=== PATIENT | female | born 1995 | race Caucasian/White ===

== ENCOUNTER 2019-06-20 21:14 | Emergency (ER) | payer MEDICAID, OTHER ==
[~2019-06-20] VITALS: Ht 167 cm; Wt 46.0 kg
[2019-06-20] MEDS ORDERED: TRAM50TA2 PO (23:11)
[2019-06-20 23:36] VITALS: BP 139/70
--- NOTE | 2019-06-21 06:45 | Diagnostic Imaging Report ---
Clinical indication: Patient running with her child at home and fell in kitchen. Patient hurt her right ankle. Exam: X-ray of the right ankle, 3 views. Comparison: None. Findings: There is no acute fracture or dislocation. There is no significant bone or joint abnormality. Ankle mortise and syndesmotic joints unremarkable as visualized. Impression: Unremarkable x-ray of the right ankle. Dictated by: Dictated on workstation # [id number]
--- NOTE | 2019-06-21 09:14 | ED Lower Extremity ---
General Chief Complaint: Lower Extremity Stated Complaint: RT ANKLE INJ Nursing Triage Note: PT RUNNING WITH HER CHILD AT HOME AND FELL IN KITCHEN. PT STATES THAT SHE HURT HER RIGHT ANKLE Nursing Sepsis Screen: No Definite Risk Source: patient Exam Limitations: no limitations History of Present Illness Date Seen by Provider: Jun 21, 2019 Time Seen by Provider: 22:00 Initial Comments Patient is a 23-year-old who presents with isolated right ankle pain/injury. States she twisted right ankle while chasing after her young child. Reports pain over lateral malleoli. No deformity noted. No swelling soft tissue tenderness noted. Pain with weightbearing. Ibuprofen taken prior to ED arrival. Onset: just prior to arrival Pain/Injury Location: right ankle Method of Injury: twisted Allergies and Home Medications Allergies Coded Allergies: Penicillins (Verified Allergy, Unknown, 06/20/19) amoxicillin (Verified Allergy, Unknown, 06/20/19) Home Medications Tramadol HCl 50 Mg Tablet, 50 MG PO Q6H PRN for PAIN Prescribed by: AMI BECERRA on 06/20/19 9113 Patient Home Medication List Home Medication List Reviewed: Yes Review of Systems Constitutional: see HPI Respiratory: see HPI Cardiovascular: see HPI Gastrointestinal: no symptoms reported Genitourinary: see HPI Musculoskeletal: see HPI Past Deovgqd-Jenjsi-Zujutx Hx Patient Social History Alcohol Use: Denies Use Recreational Drug Use: No Smoking Status: Never a Smoker 2nd Hand Smoke Exposure: No Recent Foreign Travel: No Contact w/Someone Who Travel: No Recent Infectious Disease Expo: No Recent Hopitalizations: No Physical Abuse: No Sexual Abuse: No Mistreated: No Past Medical History Surgeries: Yes Section Respiratory: No Cardiac: No Neurological: No Genitourinary: No Gastrointestinal: No Musculoskeletal: No Endocrine: No HEENT: No Cancer: No Psychosocial: No Integumentary: No Blood Disorders: No Physical Exam Vital Signs Vital Signs - First Documented 06/20/19 21:50 Temp 37.0 Pulse 85 Resp 16 B/P (MAP) 148/89 (108) Pulse Ox 99 O2 Delivery Room Air Capillary Refill : Less Than 3 Seconds Height, Weight, BMI Height: '" Weight: lbs. oz. kg; 16.00 BMI Method: General Appearance: no apparent distress HEENT: PERRL/EOMI Ankles: right ankle swelling Neurologic/Tendon: normal sensation, normal motor functions Neurologic/Psychiatric: no motor/sensory deficits, oriented x 3 Progress/Results/Core Measures Results/Orders My Orders Orders - AMI BECERRA DO Ankle 3 View Right (06/20/19 22:19) Crutches (06/20/19 23:07) Nursing Communication (Order) (06/20/19 23:07) Tramadol Tablet (Ultram Tablet) (06/20/19 23:15) Medications Given in ED Current Medications Medications Dose Ordered Sig/Nina Route Start Time Stop Time Status Last Admin Dose Admin Tramadol HCl 50 mg ONCE ONCE PO 06/20/19 23:15 06/20/19 23:16 DC 06/20/19 23:19 50 MG Vital Signs/I&O 06/20/19 06/20/19 21:50 23:36 Temp 37.0 Pulse 85 88 Resp 16 16 B/P (MAP) 148/89 (108) 139/70 Pulse Ox 99 97 O2 Delivery Room Air Room Air Blood Pressure Mean: 108 Departure Communication (Admissions) RICE Impression Primary Impression: Right ankle sprain Disposition: 01 HOME, SELF-CARE Condition: Improved Departure-Patient Inst. Referrals: CLEMENT WILCOX APRN Primary Care Physician Patient Instructions: Ankle Sprain (DC) Add. Discharge Instructions: Please wear stirrup splint, avoid weightbearing if painful and use crutches. you may take and milligrams of ibuprofen 3 times daily and tramadol as needed for additional relief. Follow-up with local PCP early next week if symptoms persist. All discharge instructions reviewed with patient and/or family. Voiced understanding. Scripts Tramadol HCl (Tramadol HCl) 50 Mg Tablet 50 MG PO Q6H PRN for PAIN for 3 Days, #10 TAB 0 Refills Prov: AMI BECERRA DO 06/20/19 AMI BECERRA DO Jun 21, 2019 09:14
== END 2019-06-20 23:38 | disposition home or self-care (01) ==
LOC: ER FS 21:16
DX: S93.401A Sprain of unspecified ligament of right ankle, initial encounter (principal); Z88.0 Allergy status to penicillin; X50.1XXA Overexertion from prolonged static or awkward postures, initial encounter; Y92.009 Unspecified place in unspecified non-institutional (private) residence as the place of occurrence of the external cause; Y93.02 Activity, running
CPT/HCPCS: 73610

== ENCOUNTER 2020-08-21 14:18 | Emergency (ER) | payer MEDICAID ==
[~2020-08-21 14:18] MED LIST: TRM50T PO
--- NOTE | 2020-08-21 14:54 | ED GI ---
General Chief Complaint: Abdominal/GI Problems Stated Complaint: STOMACH PAIN, DIZZY, SOA Nursing Triage Note: has had abdominal pain, nausea, and diarrhea after eating x the last 2 weeks. Pain starts 30 min to 1 hour after eating. States this causes her to have anxiety. Pain is rated at 6/10. Has not taken any pain medications. The pain is located in lower quadrants and described as sharp. LMP was 6 weeks ago. Took test this morning and states it was negative. Sepsis Screen: No Definite Risk Source of Information: Patient Exam Limitations: No Limitations History of Present Illness Date Seen by Provider: Aug 21, 2020 Time Seen by Provider: 14:40 Initial Comments 25-year-old female presents with intermittent abdominal pain, nausea and abdominal cramping for the past 2 weeks. Pain begins shortly after eating. History of similar symptoms in the past, although not as frequent. Occasional constipation and occasional diarrhea. Allergies and Home Medications Allergies Coded Allergies: Penicillins (Verified Allergy, Unknown, 06/20/19) amoxicillin (Verified Allergy, Unknown, 06/20/19) Home Medications Tramadol HCl 50 Mg Tablet, 50 MG PO Q6H PRN for PAIN Prescribed by: AMI BECERRA on 06/20/19 3127 Patient Home Medication List Home Medication List Reviewed: Yes Review of Systems Review of Systems Constitutional: see HPI; No fever, No malaise, No weakness EENTM: No Symptoms Reported Respiratory: No Symptoms Reported; Denies Cough, Denies Shortness of Air Cardiovascular: Denies Chest Pain, Denies Edema Gastrointestinal: See HPI, Abdominal Pain, Diarrhea, Nausea, Poor Appetite; Denies Vomiting (although vomited on arrival to ER) Genitourinary: Denies Frequency, Denies Flank Pain, Denies Hematuria Musculoskeletal: No back pain, No joint pain Skin: No change in color, No rash Past Uncplfj-Dhwhag-Avfrzs Hx Past Med/Social Hx: Reviewed Nursing Past Med/Soc Hx Patient Social History Alcohol Use: Denies Use Recreational Drug Use: Yes Drug of Choice: marijuana- used today Smoking Status: Never a Smoker 2nd Hand Smoke Exposure: No Recent Foreign Travel: No Contact w/Someone Who Travel: No Recent Infectious Disease Expo: No Recent Hopitalizations: No Past Medical History Surgeries: Yes Section Respiratory: No Cardiac: No Neurological: No Genitourinary: No Gastrointestinal: No Musculoskeletal: No Endocrine: No HEENT: No Cancer: No Psychosocial: Yes Anxiety Integumentary: No Blood Disorders: No Physical Exam Vital Signs Vital Signs - First Documented 08/21/20 14:29 Temp 36.5 Pulse 112 Resp 16 B/P (MAP) 165/87 (113) Pulse Ox 100 Capillary Refill : Less Than 3 Seconds Height/Weight/BMI Height: '" Weight: lbs. oz. kg; 16.00 BMI Method: General Appearance: WD/WN, no apparent distress HEENT: PERRL/EOMI, normal ENT inspection Respiratory: chest non-tender, lungs clear, normal breath sounds, no respiratory distress, no accessory muscle use Cardiovascular: regular rate, rhythm, no gallop, no JVD Gastrointestinal: non tender, soft, no organomegaly, no pulsatile mass; No distended, No guarding, No rebound; tenderness (minimal- lower abdomen without localization) Extremities: normal range of motion, non-tender Back: normal inspection, no CVA tenderness, no vertebral tenderness Neurologic/Psychiatric: alert, normal mood/affect Skin: normal color, warm/dry Progress/Results/Core Measures Results/Orders Lab Results Laboratory Tests Test 08/21/20 14:39 08/21/20 14:56 Range/Units Urine Color YELLOW Urine Clarity CLEAR Urine pH 7.5 5-9 Urine Specific Melissa 1.025 H 1.016-1.022 Urine Protein NEGATIVE NEGATIVE Urine Glucose (UA) NEGATIVE NEGATIVE Urine Ketones NEGATIVE NEGATIVE Urine Nitrite NEGATIVE NEGATIVE Urine Bilirubin NEGATIVE NEGATIVE Urine Urobilinogen 0.2 < = 1.0 MG/DL Urine Leukocyte Esterase NEGATIVE NEGATIVE Urine RBC (Auto) NEGATIVE NEGATIVE Urine RBC 0-2 /HPF Urine WBC 0-2 /HPF Urine Squamous Epithelial Cells 5-10 /HPF Urine Crystals PRESENT H /LPF Urine Amorphous Sediment MOD CHARISMA PHOSPHATE H /LPF Urine Bacteria NEGATIVE /HPF Urine Casts NONE /LPF Urine Mucus LARGE H /LPF Urine Culture Indicated NO Urine Test NEGATIVE NEGATIVE White Blood Count 6.6 4.3-11.0 10^3/uL Red Blood Count 4.26 L 4.35-5.85 10^6/uL Hemoglobin 13.8 11.5-16.0 G/DL Hematocrit 39 35-52 % Mean Corpuscular Volume 91 80-99 FL Mean Corpuscular Hemoglobin 32 25-34 PG Mean Corpuscular Hemoglobin Concent 36 32-36 G/DL Red Cell Distribution Width 11.9 10.0-14.5 % Platelet Count 229 130-400 10^3/uL Mean Platelet Volume 9.1 7.4-10.4 FL Immature Granulocyte % (Auto) 0 % Neutrophils (%) (Auto) 64 42-75 % Lymphocytes (%) (Auto) 29 12-44 % Monocytes (%) (Auto) 5 0-12 % Eosinophils (%) (Auto) 2 0-10 % Basophils (%) (Auto) 0 0-10 % Neutrophils # (Auto) 4.2 1.8-7.8 X 10^3 Lymphocytes # (Auto) 1.9 1.0-4.0 X 10^3 Monocytes # (Auto) 0.4 0.0-1.0 X 10^3 Eosinophils # (Auto) 0.1 0.0-0.3 10^3/uL Basophils # (Auto) 0.0 0.0-0.1 10^3/uL Immature Granulocyte # (Auto) 0.0 0.0-0.1 10^3/uL Sodium Level 139 135-145 MMOL/L Potassium Level 3.7 3.6-5.0 MMOL/L Chloride Level 104 98-107 MMOL/L Carbon Dioxide Level 22 21-32 MMOL/L Anion Gap 13 5-14 MMOL/L Blood Urea Nitrogen 9 7-18 MG/DL Creatinine 0.52 L 0.60-1.30 MG/DL Estimat Glomerular Filtration Rate > 60 BUN/Creatinine Ratio 17 Glucose Level 119 H 70-105 MG/DL Calcium Level 9.8 8.5-10.1 MG/DL Corrected Calcium 8.5-10.1 MG/DL Total Bilirubin 0.9 0.1-1.0 MG/DL Aspartate Amino Transf (AST/SGOT) 15 5-34 U/L Alanine Aminotransferase (ALT/SGPT) 13 0-55 U/L Alkaline Phosphatase 48 40-136 U/L Total Protein 7.4 6.4-8.2 GM/DL Albumin 5.0 H 3.2-4.5 GM/DL My Orders Orders - WILLIAN CAMACHO DO Cbc With Automated Diff (08/21/20 14:48) Comprehensive Metabolic Panel (08/21/20 14:48) Urinalysis (08/21/20 14:48) Abdomen Flat & Upright/Decub (08/21/20 14:48) Hcg,Qualitative Urine (08/21/20 14:48) Ns Iv 1000 Ml (Sodium Chloride 0.9%) (08/21/20 15:00) Ondansetron Injection (Zofran Injectio (08/21/20 15:00) Medications Given in ED Current Medications Medications Dose Ordered Sig/Nina Route Start Time Stop Time Status Last Admin Dose Admin Ondansetron HCl 4 mg ONCE ONCE IVP 08/21/20 15:00 08/21/20 15:01 DC 08/21/20 15:04 4 MG Vital Signs/I&O 08/21/20 14:29 Temp 36.5 Pulse 112 Resp 16 B/P (MAP) 165/87 (113) Pulse Ox 100 Blood Pressure Mean: 113 Diagnostic Imaging Diagonstic Imaging: Xray Comments COMPARISON: None available. FINDINGS: No dilated bowel. No free fluid or air. Intrauterine device is present. Lung bases are clear. IMPRESSION: Normal bowel gas pattern. Dictated on workstation # [id number] Dict: 08/21/20 1508 Trans: 08/21/20 1511 PJE [id number] Interpreted by: MCKENZIE SWANSON MD Electronically signed by: Departure Impression Primary Impression: Abdominal pain Qualified Codes: R10.84 - Generalized abdominal pain Disposition: HOME, SELF-CARE Condition: Improved Departure-Patient Inst. Decision time for Depature: 15:28 Referrals: [facility] [place] (PCP/Family) Primary Care Physician Patient Instructions: IBS Diet, Severe Abdominal Pain, Adult (DC) Add. Discharge Instructions: Follow up in 1 to 2 weeks with a provider at the [facility] of [facility] [place] for further evaluation All discharge instructions reviewed with patient and/or family. Voiced understanding. Scripts Ondansetron (Ondansetron Odt) 4 Mg Tab.rapdis 4 MG PO TID for Nausea, #15 TAB Prov: WILLIAN CAMACHO DO 08/21/20 WILLIAN CAMACHO DO Aug 21, 2020 14:54
[2020-08-21] MEDS ORDERED: NS IV 1000 ML 1,000 ML IV SCH (15:00)
[2020-08-21] MEDS ORDERED: ONDANSETRON 4 MG/2 ML (SDV) Z0FRAN IVP ONE (15:00)
[2020-08-21 15:09] LABS: BILIRUBIN,URINE NEGATIVE (NEGATIVE); CLARITY,URINE CLEAR; COLOR,URINE YELLOW; GLUCOSE, URINE (UA) NEGATIVE (NEGATIVE); KETONES,URINE NEGATIVE (NEGATIVE); LEUKOCYTE ESTERASE ,URINE NEGATIVE (NEGATIVE); NITRITE,URINE NEGATIVE (NEGATIVE); PH,URINE 7.5 (5-9); PROTEIN,URINE NEGATIVE (NEGATIVE)
[2020-08-21 15:10] LABS: AMORPHOUS SEDIMENT,UR MOD AMOR PHOSPHATE /LPF; BACTERIA,URINE NEGATIVE /HPF; RBC,URINE 0-2 /HPF; WBC,URINE 0-2 /HPF
--- NOTE | 2020-08-21 15:11 | Diagnostic Imaging Report ---
EXAMINATION: Abdomen 2 view. HISTORY: Abdominal pain. COMPARISON: None available. FINDINGS: No dilated bowel. No free fluid or air. Intrauterine device is present. Lung bases are clear. IMPRESSION: Normal bowel gas pattern. Dictated by: Dictated on workstation # [id number]
[2020-08-21 15:12] LABS: HEMOGLOBIN 13.8 G/DL (11.5-16.0); MEAN CORPUSCULAR HEMOGLOBIN 32 PG (25-34); WHITE BLOOD COUNT 6.6 10^3/uL (4.3-11.0)
[2020-08-21 15:13] LABS: BASOPHILS % (AUTO) 0 % (0-10); EOSINOPHILS # (AUTO) 0.1 10^3/uL (0.0-0.3); EOSINOPHILS % (AUTO) 2 % (0-10); HEMATOCRIT 39 % (35-52); LYMPHOCYTES # (AUTO) 1.9 X 10^3 (1.0-4.0); LYMPHOCYTES % (AUTO) 29 % (12-44); MEAN CORPUSCULAR HGB CONC 36 G/DL (32-36); MEAN CORPUSCULAR VOLUME 91 FL (80-99); MEAN PLATELET VOLUME 9.1 FL (7.4-10.4); MONOCYTES # (AUTO) 0.4 X 10^3 (0.0-1.0); MONOCYTES % (AUTO) 5 % (0-12); NEUTROPHILS # (AUTO) 4.2 X 10^3 (1.8-7.8); NEUTROPHILS % (AUTO) 64 % (42-75); PLATELET COUNT 229 10^3/uL (130-400)
[2020-08-21 15:20] LABS: POTASSIUM 3.7 MMOL/L (3.6-5.0); SODIUM 139 MMOL/L (135-145)
[2020-08-21 15:21] LABS: ALANINE AMINOTRANSFERASE 13 U/L (0-55); ALKALINE PHOSPHATASE 48 U/L (40-136); BILIRUBIN,TOTAL 0.9 MG/DL (0.1-1.0); BUN/CREATININE RATIO 17; CALCIUM 9.8 MG/DL (8.5-10.1); CARBON DIOXIDE 22 MMOL/L (21-32); CHLORIDE 104 MMOL/L (98-107); CREATININE SERUM 0.52 MG/DL (0.60-1.30); GFR ESTIMATED > 60; GLUCOSE 119 MG/DL (70-105); TOTAL PROTEIN 7.4 GM/DL (6.4-8.2)
[2020-08-21] MEDS ORDERED: ONDA4TAB11 PO (15:27)
[2020-08-21 15:37] VITALS: BP 124/91
== END 2020-08-21 15:39 | disposition home or self-care (01) ==
LOC: EDUNIT# 14:18 → ER FS 14:20
DX: R10.30 Lower abdominal pain, unspecified (principal); Z88.0 Allergy status to penicillin; Z88.1 Allergy status to other antibiotic agents
CPT/HCPCS: 36415; 74019; 80053; 81000; 84703; 85025

== ENCOUNTER → 2020-09-09 | Outpatient (CLI) | payer MEDICAID ==
[~2020-09-09] MED LIST changes: +CATHETER FLUSH 10 ML SYR IV PRN; +ONDA4TAB11 PO
--- NOTE | 2020-09-09 14:18 | Diagnostic Imaging Report ---
INDICATION: Pain and nausea COMPARISON: No relevant comparison. TECHNIQUE: The patient received 5 mCi intravenous technetium 99m Choletec. Following confirmation of activity within the gallbladder, bile ducts and proximal bowel, gallbladder stimulation was then performed with the patient ingesting 8 ounces of Ensure. Gallbladder ejection fraction then quantified. There is rapid accumulation of radiopharmacy within the gallbladder within 15 minutes time. Activity was spilling into the proximal bowel within 20 minutes time. With gallbladder stimulation, there was diminished contractility. The ejection fraction was 37% and the stimulation did reproduce the patient's presenting complaint of pain. IMPRESSION: 1. 37% gallbladder ejection fracture. Gallbladder stimulation via Ensure ingestion reproduced the presenting complaint of pain. 2. No evidence for cystic or common duct obstruction however. Dictated by: Dictated on workstation # [id number]
== END ==
LOC: CARD 09:03
PROVIDERS: ATTEND Family Medicine
DX: R11.0 Nausea (principal); R10.84 Generalized abdominal pain
CPT/HCPCS: 78227; A9537

== ENCOUNTER → 2020-10-22 | Outpatient (CLI) | payer MEDICAID ==
[~2020-10-22] MED LIST changes: -CATHETER FLUSH 10 ML SYR IV PRN
--- NOTE | 2020-10-22 11:13 | Diagnostic Imaging Report ---
EXAM: Supine abdomen at 10:50 AM INDICATION: Left lower quadrant pain 2 supine views were obtained. There is gas in both the large and small bowel in a nonspecific fashion. There is also a considerable amount of fecal material throughout the colon. These findings are quite similar to the prior exam of 08/21/2020. There is no evidence of a bowel obstruction. There is no mass or organomegaly appreciated. The IUD overlying the pelvis just to the right of midline seen previously is again evident. The osseous structures are intact. IMPRESSION: 1. The bowel gas pattern is nonspecific. There is no acute abnormality identified. 2. As on the prior exam, there is a considerable amount of fecal material throughout the colon. Dictated by: Dictated on workstation # [id number]
== END ==
LOC: RAD FS 10:42
PROVIDERS: ATTEND Family Medicine
DX: K58.9 Irritable bowel syndrome, unspecified (principal)
CPT/HCPCS: 74018

== ENCOUNTER 2020-12-20 15:49 | Emergency (ER) | payer MEDICAID ==
--- NOTE | 2020-12-20 16:11 | ED Abdominal Pain ---
General Chief Complaint: Abdominal/GI Problems Stated Complaint: ABD PAIN Source of Information: Patient Exam Limitations: No Limitations History of Present Illness Date Seen by Provider: Dec 20, 2020 Time Seen by Provider: 15:52 Initial Comments Patient presents ER by private conveyance with her significant other and chief complaint of having some progressively worsening abdominal pain in her left upper quadrant and left lower quadrant that was at worst a 6 out of 10 but now is coming down to about a 2 out of 10. She has nausea that is worsened by palpation of her abdomen. She has not vomited. Last week her fly winder set her up to do endoscopy upper and lower. The upper endoscopy was normal and the lower showed several patches of inflammation so biopsies were taken. She has been having significant weight loss over the past 6 months. She is not having any dysuria or fever. She does not know the results of her biopsies yet. She has not taken anything for pain or nausea. She does have significant anxiety related to her health and has clonazepam for panic attacks. She did not take 1 but she was feeling a panic attack coming on related to her health concerns and having some chest pain and radiating to her left arm. She is not having any fevers chills, shortness of breath. She has not had a significant bowel movement since her colonoscopy and this morning had just a few little bits of stool. This morning she was passing gas but not this afternoon. She has had 2 C-sections. Patient has intrauterine device. She states she weighed 117 several months ago when the symptoms started. 108# today. Allergies and Home Medications Allergies Coded Allergies: Penicillins (Verified Allergy, Unknown, 06/20/19) amoxicillin (Verified Allergy, Unknown, 06/20/19) sertraline (Unverified Allergy, Unknown, Throat swells, 12/20/20) Home Medications Lubiprostone 8 Mcg Capsule, 8 MCG PO BID PRN for CONSTIPATION-2ND LINE Prescribed by: RABIA GERARDO on 12/20/20 172 Na Phos,M-B/Na Phos,Di-Ba 133 Ml Enema, 133 ML RC BID PRN for CONSTIPATION-1ST LINE Prescribed by: RABIA GERARDO on 12/20/20 1726 Ondansetron 4 Mg Tab.rapdis, 4 MG PO TID Prescribed by: WILLIAN CAMACHO on 08/21/20 1527 Ondansetron 4 Mg Tab.rapdis, 4 MG PO Q6H PRN for NAUSEA/VOMITING Prescribed by: RABIA GERARDO on 12/20/20 1726 Tramadol HCl 50 Mg Tablet, 50 MG PO Q6H PRN for PAIN Prescribed by: AMI BECERRA on 06/20/19 2311 Patient Home Medication List Home Medication List Reviewed: Yes Review of Systems Review of Systems Constitutional: No chills, No diaphoresis EENTM: No Blurred Vision, No Double Vision Respiratory: Denies Cough, Denies Orthopnea Cardiovascular: See HPI, Chest Pain; Denies Edema, Denies Lightheadedness Gastrointestinal: See HPI, Abdominal Pain, Constipated; Denies Diarrhea; Nausea, Poor Fluid Intake Genitourinary: Denies Burning, Denies Discharge Musculoskeletal: No back pain, No joint pain Psychiatric/Neurological: Denies Anxiety, Denies Depressed All Other Systems Reviewed Negative Unless Noted: Yes Past Hyrbwto-Gsgije-Tfzbpx Hx Patient Social History Alcohol Use: Denies Use Drug of Choice: marijuana- used today Smoking Status: Never a Smoker 2nd Hand Smoke Exposure: No Recent Hopitalizations: No Past Medical History Surgeries: Yes Section Respiratory: No Cardiac: No Neurological: No Genitourinary: No Gastrointestinal: No Musculoskeletal: No Endocrine: No HEENT: No Cancer: No Psychosocial: Yes Anxiety Integumentary: No Blood Disorders: No Physical Exam Vital Signs Vital Signs - First Documented 12/20/20 15:55 Temp 35.7 Pulse 79 Resp 18 B/P (MAP) 163/95 (117) Pulse Ox 99 O2 Delivery Room Air Capillary Refill : Height/Weight/BMI Height: '" Weight: lbs. oz. kg; 16.00 BMI Method: General Appearance: WD/WN, mild distress HEENT: PERRL/EOMI, normal ENT inspection, pharynx normal Neck: full range of motion, normal inspection Respiratory: lungs clear, normal breath sounds, no respiratory distress, no accessory muscle use, other (Chest discomfort improved by direct palpation over the chest wall and reproducible.) Cardiovascular: normal peripheral pulses, regular rate, rhythm, no edema, no murmur Peripheral Pulses: 2+ Dorsalis Pedis (R), 2+ Left Dors-Pedis (L) Gastrointestinal: normal bowel sounds, soft, tenderness (Mild tenderness in the left upper and lower quadrants without rebound tenderness, Rovsing sign, psoas sign or other mesenteric signs.) Extremities: normal range of motion, normal capillary refill Neurologic/Psychiatric: alert, oriented x 3, other (Very anxious affect.) Skin: normal color, warm/dry Progress/Results/Core Measures Results/Orders Lab Results Laboratory Tests Test 12/20/20 15:55 12/20/20 16:05 Range/Units Urine Color YELLOW Urine Clarity CLEAR Urine pH 5.5 5-9 Urine Specific [place] 1.025 H 1.016-1.022 Urine Protein NEGATIVE NEGATIVE Urine Glucose (UA) NEGATIVE NEGATIVE Urine Ketones TRACE H NEGATIVE Urine Nitrite NEGATIVE NEGATIVE Urine Bilirubin NEGATIVE NEGATIVE Urine Urobilinogen 0.2 < = 1.0 MG/DL Urine Leukocyte Esterase NEGATIVE NEGATIVE Urine RBC (Auto) NEGATIVE NEGATIVE Urine RBC 0-2 /HPF Urine WBC 0-2 /HPF Urine Squamous Epithelial Cells 2-5 /HPF Urine Crystals NONE /LPF Urine Bacteria NEGATIVE /HPF Urine Casts NONE /LPF Urine Mucus NEGATIVE /LPF Urine Culture Indicated NO White Blood Count 7.7 4.3-11.0 10^3/uL Red Blood Count 4.44 4.35-5.85 10^6/uL Hemoglobin 14.5 11.5-16.0 G/DL Hematocrit 41 35-52 % Mean Corpuscular Volume 93 80-99 FL Mean Corpuscular Hemoglobin 33 25-34 PG Mean Corpuscular Hemoglobin Concent 35 32-36 G/DL Red Cell Distribution Width 11.9 10.0-14.5 % Platelet Count 230 130-400 10^3/uL Mean Platelet Volume 9.5 7.4-10.4 FL Immature Granulocyte % (Auto) 0 % Neutrophils (%) (Auto) 64 42-75 % Lymphocytes (%) (Auto) 28 12-44 % Monocytes (%) (Auto) 5 0-12 % Eosinophils (%) (Auto) 3 0-10 % Basophils (%) (Auto) 0 0-10 % Neutrophils # (Auto) 4.9 1.8-7.8 X 10^3 Lymphocytes # (Auto) 2.2 1.0-4.0 X 10^3 Monocytes # (Auto) 0.4 0.0-1.0 X 10^3 Eosinophils # (Auto) 0.2 0.0-0.3 10^3/uL Basophils # (Auto) 0.0 0.0-0.1 10^3/uL Immature Granulocyte # (Auto) 0.0 0.0-0.1 10^3/uL Sodium Level 142 135-145 MMOL/L Potassium Level 4.2 3.6-5.0 MMOL/L Chloride Level 105 98-107 MMOL/L Carbon Dioxide Level 24 21-32 MMOL/L Anion Gap 13 5-14 MMOL/L Blood Urea Nitrogen 11 7-18 MG/DL Creatinine 0.57 L 0.60-1.30 MG/DL Estimat Glomerular Filtration Rate > 60 BUN/Creatinine Ratio 19 Glucose Level 98 70-105 MG/DL Calcium Level 10.0 8.5-10.1 MG/DL Corrected Calcium 8.5-10.1 MG/DL Total Bilirubin 1.4 H 0.1-1.0 MG/DL Aspartate Amino Transf (AST/SGOT) 14 5-34 U/L Alanine Aminotransferase (ALT/SGPT) 11 0-55 U/L Alkaline Phosphatase 48 40-136 U/L Troponin I < 0.30 <0.30 NG/ML C-Reactive Protein 0.07 <0.50 MG/DL Total Protein 8.3 H 6.4-8.2 GM/DL Albumin 5.4 H 3.2-4.5 GM/DL Lipase 32 8-78 U/L My Orders Orders - RABIA GERARDO Ua Culture If Indicated (12/20/20 15:53) Urine Bedside (12/20/20 15:53) Lorazepam Injection (Ativan Injection) (12/20/20 16:15) Lipase (12/20/20 16:04) Cbc With Automated Diff (12/20/20 16:04) Comprehensive Metabolic Panel (12/20/20 16:04) Crp Fs (12/20/20 16:04) Ed Iv/Invasive Line Start (12/20/20 16:04) Ns Iv 500 Ml (Sodium Chloride 0.9%) (12/20/20 16:15) Ondansetron Injection (Zofran Injectio (12/20/20 16:15) Famotidine Injection (Pepcid Injection) (12/20/20 16:15) Ekg Tracing (12/20/20 16:35) Troponin I Fs (12/20/20 16:35) Chest Pa/Lat (2 View) (12/20/20 16:35) Abdomen (Kub) 1 View (12/20/20 16:39) Medications Given in ED Current Medications Medications Dose Ordered Sig/Nina Route Start Time Stop Time Status Last Admin Dose Admin Famotidine 20 mg ONCE ONCE IVP 12/20/20 16:15 12/20/20 16:16 DC 12/20/20 16:15 20 MG Lorazepam 0.5 mg ONCE ONCE IVP 12/20/20 16:15 12/20/20 16:16 DC 12/20/20 16:17 0.5 MG Ondansetron HCl 4 mg ONCE ONCE IVP 12/20/20 16:15 12/20/20 16:16 DC 12/20/20 16:16 4 MG Sodium Chloride 500 ml @ 0 mls/hr Q0M ONCE IV 12/20/20 16:15 12/20/20 16:16 DC 12/20/20 16:16 1,000 MLS/HR Vital Signs/I&O 12/20/20 15:55 Temp 35.7 Pulse 79 Resp 18 B/P (MAP) 163/95 (117) Pulse Ox 99 O2 Delivery Room Air Progress Progress Note #1: Time: 16:10 Progress Note She is quite anxious about her health may be reasonably so. Her pain seems to be under better control so we did offer some Ativan for her anxiety while we work her up. Differential includes gastroenteritis/colitis, inflammatory versus infectious as well as possible ileus related to her recent colonoscopy and EGD. Much less likely perforation. If she is having normal labs and no elevated CRP then we may just get a KUB to rule out air under the diaphragm. If she is not feeling any better after some Zofran and Pepcid then we may consider doing a CT of her abdomen and pelvis instead. Progress Note #2: Time: 16:40 Progress Note Patient appears less anxious and her arm pain has gone away after Ativan. White count and CRP unremarkable. Her abdominal pain is 2 out of 10 presently so we will get a KUB to rule out free air under the abdomen and megan ileus. Chest x- ray since she is having some pain in her chest that is reproducible to direct palpation. EKG and troponin. Her chest pain has been going on daily for the past several months. Irritable bowel versus inflammatory bowel. Initial ECG Impression Date: Dec 20, 2020 Initial ECG Impression Time: 16:36 Initial ECG Rate: 89 Initial ECG Rhythm: Normal Sinus Initial ECG Intervals: Normal Initial ECG Impression: Normal Initial ECG Comparisson: No Previous ECG Available Comment Normal sinus rhythm without clinically relevant ST changes. Diagnostic Imaging Diagonstic Imaging: Xray Plain Films/CT/US/NM/MRI: chest Comments NAME: SERAFIN BOWERS [facility] REC#: [id number] PT STATUS: REG ER : 1995 PHYSICIAN: RABIA GERARDO MD ADMIT DATE: 12/20/20/ER FS Draft Date of Exam:12/20/20 CHEST PA/LAT (2 VIEW) INDICATION: Chest pain. TECHNIQUE: PA and lateral chest obtained at 04:47 p.m. FINDINGS: Heart and mediastinal silhouette are normal in appearance. The lungs are clear. There is no pneumothorax or pleural fluid. IMPRESSION: Negative chest. Dictated on workstation # [id number] Dict: 12/20/201655 Trans: 12/20/201658 AS6 [id number] Interpreted by: KG NATH MD Electronically signed by: Reviewed: Reviewed by Me Diagonstic Imaging: Xray Plain Films/CT/US/NM/MRI: abdomen, pelvis (KUB 1 view) Comments NAME: SERAFIN BOWERS [facility] REC#: [id number] PT STATUS: REG ER : 1995 PHYSICIAN: RABIA GERARDO MD ADMIT DATE: 12/20/20/ER FS Draft Date of Exam:12/20/20 ABDOMEN (KUB) 1 VIEW INDICATION: Constipation. TECHNIQUE: Abdominal film obtained at 04:51 p.m. and compared to 10/22/2020. FINDINGS: There is prominent stool throughout the colon, compatible with constipation. There is no obstruction or ileus. There are no suspicious calcifications. IMPRESSION: Prominent stool throughout the colon with no overt obstruction or ileus. Dictated on workstation # [id number] Dict: 12/20/201658 Trans: 12/20/201705 AS6 [id number] Interpreted by: KG NATH MD Electronically signed by: Reviewed: Reviewed by Me Departure Impression Primary Impression: Obstipation Disposition: HOME, SELF-CARE Condition: Stable Departure-Patient Inst. Decision time for Depature: 17:03 Referrals: ANURAG PERRY MD (PCP/Family) Primary Care Physician Patient Instructions: Constipation, Adult (DC) Add. Discharge Instructions: You have no evidence of any dangerous findings in your abdomen or chest and these symptoms seem to be consistent with the difficulties with constipation you have been dealing with. You have an ongoing work-up to determine whether you have irritable bowel or inflammatory bowel disease. Simethicone/Gas-X every 4 hours as needed for gas pain in your abdomen. Since you did not tolerate MiraLAX very well we will try lubiprostone/Amitiza 1 capsule twice a day until you have good effect. You need to drink lots of fluids with this and you may even choose to pretreat with your nausea medicine. Zofran ODT 1 tablet every 6 hours as necessary for nausea or vomiting. banquet supervisor several bottles of fleets enema and use them twice a day until you have good effect and feel like your colon is cleaned out. Promptly return to the nearest ER if you are having severe, intractable pain despite Tylenol, heating pads and rest or you develop a fever above 102.5. Follow-up with your primary care doctor or fly winder for results at your scheduled appointment. All discharge instructions reviewed with patient and/or family. Voiced understanding. Scripts Na [place],M-B/Na Phos,Di-Ba (Fleet Enema) 133 Ml Enema 133 ML RC BID PRN for CONSTIPATION-1ST LINE for 3 Days, #6 EA 0 Refills Prov: RABIA GERARDO 12/20/20 Lubiprostone (Lubiprostone) 8 Mcg Capsule 8 MCG PO BID PRN for CONSTIPATION-2ND LINE for 7 Days, #14 CAP 0 Refills Prov: RABIA GERARDO 12/20/20 Ondansetron (Ondansetron Odt) 4 Mg Tab.rapdis 4 MG PO Q6H PRN for NAUSEA/VOMITING, #15 TAB 0 Refills Prov: RABIA GERARDO 12/20/20 Copy Copies To 1: ANURAG PERRY MD, TITUS J Dec 20, 2020 16:11
[2020-12-20] MEDS ORDERED: LORazepam INJ 2 MG/ML (ATIVAN) VIAL IVP ONE (16:15)
[2020-12-20] MEDS ORDERED: FAMOTIDINE 20MG/2ML IV (PEPCID) IVP ONE (16:15)
[2020-12-20] MEDS ORDERED: ONDANSETRON 4 MG/2 ML (SDV) Z0FRAN IVP ONE (16:15)
[2020-12-20] MEDS ORDERED: NS IV 500 ML 500 ML IV ONE (16:15)
[2020-12-20 16:20] LABS: BILIRUBIN,URINE NEGATIVE (NEGATIVE); CLARITY,URINE CLEAR; COLOR,URINE YELLOW; GLUCOSE, URINE (UA) NEGATIVE (NEGATIVE); KETONES,URINE TRACE (NEGATIVE); LEUKOCYTE ESTERASE ,URINE NEGATIVE (NEGATIVE); NITRITE,URINE NEGATIVE (NEGATIVE); PH,URINE 5.5 (5-9); PROTEIN,URINE NEGATIVE (NEGATIVE); RBC,URINE 0-2 /HPF; WBC,URINE 0-2 /HPF
[2020-12-20 16:21] LABS: BACTERIA,URINE NEGATIVE /HPF
[2020-12-20 16:21] LABS: HEMATOCRIT 41 % (35-52); HEMOGLOBIN 14.5 G/DL (11.5-16.0); MEAN CORPUSCULAR HEMOGLOBIN 33 PG (25-34); MEAN CORPUSCULAR HGB CONC 35 G/DL (32-36); MEAN CORPUSCULAR VOLUME 93 FL (80-99); WHITE BLOOD COUNT 7.7 10^3/uL (4.3-11.0)
[2020-12-20 16:22] LABS: BASOPHILS % (AUTO) 0 % (0-10); EOSINOPHILS # (AUTO) 0.2 10^3/uL (0.0-0.3); EOSINOPHILS % (AUTO) 3 % (0-10); LYMPHOCYTES # (AUTO) 2.2 X 10^3 (1.0-4.0); LYMPHOCYTES % (AUTO) 28 % (12-44); MEAN PLATELET VOLUME 9.5 FL (7.4-10.4); MONOCYTES # (AUTO) 0.4 X 10^3 (0.0-1.0); MONOCYTES % (AUTO) 5 % (0-12); NEUTROPHILS # (AUTO) 4.9 X 10^3 (1.8-7.8); NEUTROPHILS % (AUTO) 64 % (42-75); PLATELET COUNT 230 10^3/uL (130-400)
[2020-12-20 16:34] LABS: POTASSIUM 4.2 MMOL/L (3.6-5.0); SODIUM 142 MMOL/L (135-145)
[2020-12-20 16:35] LABS: CARBON DIOXIDE 24 MMOL/L (21-32); CHLORIDE 105 MMOL/L (98-107)
[2020-12-20 16:37] LABS: ALANINE AMINOTRANSFERASE 11 U/L (0-55); ALBUMIN 5.4 GM/DL (3.2-4.5); ALKALINE PHOSPHATASE 48 U/L (40-136); BILIRUBIN,TOTAL 1.4 MG/DL (0.1-1.0); BUN/CREATININE RATIO 19; CREATININE SERUM 0.57 MG/DL (0.60-1.30); GFR ESTIMATED > 60; GLUCOSE 98 MG/DL (70-105); LIPASE 32 U/L (8-78); TOTAL PROTEIN 8.3 GM/DL (6.4-8.2)
--- NOTE | 2020-12-20 16:59 | Diagnostic Imaging Report ---
INDICATION: Chest pain. TECHNIQUE: PA and lateral chest obtained at 04:47 p.m. FINDINGS: Heart and mediastinal silhouette are normal in appearance. The lungs are clear. There is no pneumothorax or pleural fluid. IMPRESSION: Negative chest. Dictated by: Dictated on workstation # [id number]
--- NOTE | 2020-12-20 17:06 | Diagnostic Imaging Report ---
INDICATION: Constipation. TECHNIQUE: Abdominal film obtained at 04:51 p.m. and compared to 10/22/2020. FINDINGS: There is prominent stool throughout the colon, compatible with constipation. There is no obstruction or ileus. There are no suspicious calcifications. IMPRESSION: Prominent stool throughout the colon with no overt obstruction or ileus. Dictated by: Dictated on workstation # [id number]
[2020-12-20] MEDS ORDERED: ONDA4TAB11 PO (17:26)
[2020-12-20] MEDS ORDERED: LUBI8CAP5 PO (17:26)
[2020-12-20] MEDS ORDERED: NA P133E22 RC (17:26)
[2020-12-20 17:34] VITALS: BP 142/82
== END 2020-12-20 17:35 | disposition home or self-care (01) ==
LOC: EDUNIT# 15:49 → ER FS 15:50
DX: K59.00 Constipation, unspecified (principal); K31.9 Disease of stomach and duodenum, unspecified; F41.0 Panic disorder [episodic paroxysmal anxiety]; Z79.899 Other long term (current) drug therapy; Z88.0 Allergy status to penicillin; Z88.1 Allergy status to other antibiotic agents; Z88.8 Allergy status to other drugs, medicaments and biological substances
CPT/HCPCS: 36415; 71046; 74018; 80053; 81000; 83690; 84484; 84703; 85025; 86141; 93005

== ENCOUNTER 2021-02-23 09:19 | Emergency (ER) | payer MEDICAID ==
[~2021-02-23] VITALS: Ht 167.7 cm; Wt 46.7 kg
[~2021-02-23 09:19] MED LIST changes: +LUBI8CAP5 PO; +NA P133E22 RC
--- NOTE | 2021-02-23 09:24 | ED Chest Pain ---
General Stated Complaint: CHEST PAIN History of Present Illness Date Seen by Provider: Feb 23, 2021 Time Seen by Provider: 09:24 Initial Comments 25-year-old female presents with have a diffuse chest pain with back pain and left arm pain. Reports it gets better with certain positions. Worse with movement and if she lays on her sides. Reports that if she uses her left arm it gets worse. She denies any cough, fever, chills. Pain started around 1030 yesterday evening. She denies any smoking, vaping or illicit drug use. Patient reports it started after putting her kids to bed and carrying them. Allergies and Home Medications Allergies Coded Allergies: Penicillins (Verified Allergy, Unknown, 06/20/19) amoxicillin (Verified Allergy, Unknown, 06/20/19) omeprazole (Verified Allergy, Unknown, 02/23/21) sertraline (Unverified Allergy, Unknown, Throat swells, 12/20/20) Home Medications Lubiprostone 8 Mcg Capsule, 8 MCG PO BID PRN for CONSTIPATION-2ND LINE Prescribed by: RABIA GERARDO on 12/20/20 1726 Na Phos,M-B/Na Phos,Di-Ba 133 Ml Enema, 133 ML RC BID PRN for CONSTIPATION-1ST LINE Prescribed by: RABIA GERARDO on 12/20/20 1726 Ondansetron 4 Mg Tab.rapdis, 4 MG PO TID Prescribed by: WILLIAN CAMACHO on 08/21/20 1527 Ondansetron 4 Mg Tab.rapdis, 4 MG PO Q6H PRN for NAUSEA/VOMITING Prescribed by: RABIA GERARDO on 12/20/20 1726 Tramadol HCl 50 Mg Tablet, 50 MG PO Q6H PRN for PAIN Prescribed by: AMI BECERRA on 06/20/19 2311 Patient Home Medication List Home Medication List Reviewed: Yes Review of Systems Review of Systems Constitutional: No chills, No fever Respiratory: Denies Cough, Denies Shortness of Air Cardiovascular: See HPI; Denies Irregular Heart Rate, Denies Lightheadedness, Denies Syncope Gastrointestinal: Denies Diarrhea, Denies Nausea, Denies Vomiting Musculoskeletal: see HPI Skin: no symptoms reported Psychiatric/Neurological: No Symptoms Reported Endocrine: No Symptoms Reported Past Gqaqjog-Zmllwe-Ickhit Hx Past Med/Social Hx: Reviewed Nursing Past Med/Soc Hx Patient Social History Drug of Choice: marijuana- used today 2nd Hand Smoke Exposure: No Recent Hopitalizations: No Past Medical History Surgeries: Yes Section Respiratory: No Cardiac: No Neurological: No Genitourinary: No Gastrointestinal: No Musculoskeletal: No Endocrine: No HEENT: No Cancer: No Psychosocial: Yes Anxiety Integumentary: No Blood Disorders: No Physical Exam Vital Signs Vital Signs - First Documented 02/23/21 09:30 Temp 37.3 Pulse 106 Resp 16 B/P (MAP) 149/83 (105) Pulse Ox 99 O2 Delivery Room Air Capillary Refill : Height, Weight, BMI Height: '" Weight: lbs. oz. 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 Norm as Tested Skin: Normal Color, Warm/Dry Progress/Results/Core Measures Results/Orders Lab Results Laboratory Tests Test 02/23/21 09:34 02/23/21 09:35 Range/Units White Blood Count 4.8 4.3-11.0 10^3/uL Red Blood Count 4.23 L 4.35-5.85 10^6/uL Hemoglobin 13.6 11.5-16.0 G/DL Hematocrit 40 35-52 % Mean Corpuscular Volume 93 80-99 FL Mean Corpuscular Hemoglobin 32 25-34 PG Mean Corpuscular Hemoglobin Concent 34 32-36 G/DL Red Cell Distribution Width 11.9 10.0-14.5 % Platelet Count 248 130-400 10^3/uL Mean Platelet Volume 9.2 7.4-10.4 FL Immature Granulocyte % (Auto) 0 % Neutrophils (%) (Auto) 49 42-75 % Lymphocytes (%) (Auto) 42 12-44 % Monocytes (%) (Auto) 7 0-12 % Eosinophils (%) (Auto) 2 0-10 % Basophils (%) (Auto) 1 0-10 % Neutrophils # (Auto) 2.4 1.8-7.8 X 10^3 Lymphocytes # (Auto) 2.0 1.0-4.0 X 10^3 Monocytes # (Auto) 0.3 0.0-1.0 X 10^3 Eosinophils # (Auto) 0.1 0.0-0.3 10^3/uL Basophils # (Auto) 0.0 0.0-0.1 10^3/uL Immature Granulocyte # (Auto) 0.0 0.0-0.1 10^3/uL Prothrombin Time 13.4 12.2-14.7 SEC INR Comment 1.0 0.8-1.4 Activated Partial Thromboplast Time 27 24-35 SEC D-Dimer < 0.27 0.00-0.49 UG/ML Sodium Level 139 135-145 MMOL/L Potassium Level 3.7 3.6-5.0 MMOL/L Chloride Level 101 98-107 MMOL/L Carbon Dioxide Level 25 21-32 MMOL/L Anion Gap 13 5-14 MMOL/L Blood Urea Nitrogen 13 7-18 MG/DL Creatinine 0.63 0.60-1.30 MG/DL Estimat Glomerular Filtration Rate > 60 BUN/Creatinine Ratio 21 Glucose Level 100 70-105 MG/DL Calcium Level 9.7 8.5-10.1 MG/DL Corrected Calcium 8.5-10.1 MG/DL Magnesium Level 2.1 1.6-2.4 MG/DL Total Bilirubin 1.6 H 0.1-1.0 MG/DL Aspartate Amino Transf (AST/SGOT) 12 5-34 U/L Alanine Aminotransferase (ALT/SGPT) 10 0-55 U/L Alkaline Phosphatase 48 40-136 U/L Myoglobin 29.6 10.0-92.0 NG/ML Troponin I < 0.30 <0.30 NG/ML Total Protein 7.6 6.4-8.2 GM/DL Albumin 4.8 H 3.2-4.5 GM/DL Urine Color YELLOW Urine Clarity CLEAR Urine pH 7.5 5-9 Urine Specific [place] 1.015 L 1.016-1.022 Urine Protein NEGATIVE NEGATIVE Urine Glucose (UA) NEGATIVE NEGATIVE Urine Ketones NEGATIVE NEGATIVE Urine Nitrite NEGATIVE NEGATIVE Urine Bilirubin NEGATIVE NEGATIVE Urine Urobilinogen NORMAL < = 1.0 MG/DL Urine Leukocyte Esterase NEGATIVE NEGATIVE Urine RBC (Auto) NEGATIVE NEGATIVE Urine RBC NONE /HPF Urine WBC NONE /HPF Urine Squamous Epithelial Cells 0-2 /HPF Urine Crystals NONE /LPF Urine Bacteria NEGATIVE /HPF Urine Casts NONE /LPF Urine Mucus NEGATIVE /LPF Urine Culture Indicated NO Urine Test NEGATIVE NEGATIVE My Orders Orders - HATCH,FADI L DO Cbc With Automated Diff (02/23/21 09:27) Magnesium (02/23/21 09:27) Chest 1 View Ap/Pa Only (02/23/21 09:27) Ekg Tracing (02/23/21:27) Comprehensive Metabolic Panel (02/23/21:27) Myoglobin Serum (02/23/21:27) Protime With Inr (02/23/21:27) Partial Thromboplastin Time (02/23/21:27) Monitor-Rhythm Ecg Trace Only (02/23/21:27) Ed Iv/Invasive Line Start (02/23/21 09:27) Fibrin Degradation Products (02/23/21 09:27) Troponin I Fs (02/23/21:27) Ketorolac Injection (Toradol Injection) (02/23/21 09:27) Hcg,Qualitative Urine (02/23/21 09:32) Ua Culture If Indicated (02/23/21 09:32) Vital Signs/I&O 02/23/21 02/23/21 09:30 09:43 Temp 37.3 Pulse 106 Resp 16 B/P (MAP) 149/83 (105) Pulse Ox 99 O2 Delivery Room Air Room Air Progress Progress Note : Time: 10:20 Progress Note Patient with negative EKG, chest x-ray, troponin, and D-dimer. Patient symptoms much more consistent with musculoskeletal pain. Discussed with her that need to use Tylenol ibuprofen. Patient stable and discharged home Initial ECG Impression Date: Feb 23, 2021 Initial ECG Impression Time: 09:23 Initial ECG Rate: 105 Initial ECG Rhythm: S.Tach Comment sinus tach, no acute findings. Diagnostic Imaging Diagonstic Imaging: Xray Plain Films/CT/US/NM/MRI: chest Comments IMPRESSION: 1. Negative appearing portable chest. Reviewed: Reviewed by Me, Reviewed/Discussed Departure Impression Primary Impression: Acute thoracic myofascial strain Qualified Codes: S29.019A - Strain of muscle and tendon of unspecified wall of thorax, initial encounter Additional Impression: Chest wall pain Disposition: 01 HOME, SELF-CARE Condition: Stable Departure-Patient Inst. Referrals: SELF,ANURAG REINA (PCP/Family) Primary Care Physician Patient Instructions: Chest Pain That Is Not Caused by the Heart (DC), Muscle Strain ED Add. Discharge Instructions: Warm moist heat to affected areas Tylenol or ibuprofen as needed for pain 4% topical lidocaine sparingly to affected areas FADI HATCH DO Feb 23, 2021 09:24
[2021-02-23] MEDS ORDERED: KETOROLAC 30 MG/ML VIAL IVP STA (09:27)
[2021-02-23 09:52] LABS: HEMATOCRIT 40 % (35-52); HEMOGLOBIN 13.6 G/DL (11.5-16.0); MEAN CORPUSCULAR HEMOGLOBIN 32 PG (25-34); MEAN CORPUSCULAR HGB CONC 34 G/DL (32-36); MEAN CORPUSCULAR VOLUME 93 FL (80-99); MEAN PLATELET VOLUME 9.2 FL (7.4-10.4); PLATELET COUNT 248 10^3/uL (130-400); WHITE BLOOD COUNT 4.8 10^3/uL (4.3-11.0)
[2021-02-23 09:53] LABS: BASOPHILS % (AUTO) 1 % (0-10); EOSINOPHILS # (AUTO) 0.1 10^3/uL (0.0-0.3); EOSINOPHILS % (AUTO) 2 % (0-10); LYMPHOCYTES % (AUTO) 42 % (12-44); MONOCYTES # (AUTO) 0.3 X 10^3 (0.0-1.0); MONOCYTES % (AUTO) 7 % (0-12); NEUTROPHILS # (AUTO) 2.4 X 10^3 (1.8-7.8); NEUTROPHILS % (AUTO) 49 % (42-75)
--- NOTE | 2021-02-23 09:54 | Diagnostic Imaging Report ---
INDICATION: Chest pain, worse when moving.. TECHNIQUE: Single view chest 9:35 AM. CORRELATION STUDY: None FINDINGS: The heart size, mediastinal configuration and pulmonary vascularity are within normal limits. The lungs are mildly hyperinflated but overall are clear with no consolidating infiltrate. There is no significant effusion or pneumothorax. IMPRESSION: 1. Negative appearing portable chest. Dictated by: Dictated on workstation # [id number]
[2021-02-23 09:57] LABS: BACTERIA,URINE NEGATIVE /HPF; BILIRUBIN,URINE NEGATIVE (NEGATIVE); CLARITY,URINE CLEAR; COLOR,URINE YELLOW; GLUCOSE, URINE (UA) NEGATIVE (NEGATIVE); KETONES,URINE NEGATIVE (NEGATIVE); LEUKOCYTE ESTERASE ,URINE NEGATIVE (NEGATIVE); NITRITE,URINE NEGATIVE (NEGATIVE); PH,URINE 7.5 (5-9); PROTEIN,URINE NEGATIVE (NEGATIVE); SQUAMOUS EPITHELIAL CELL,UR 0-2 /HPF
[2021-02-23 10:09] LABS: ALANINE AMINOTRANSFERASE 10 U/L (0-55); ALBUMIN 4.8 GM/DL (3.2-4.5); ALKALINE PHOSPHATASE 48 U/L (40-136); BILIRUBIN,TOTAL 1.6 MG/DL (0.1-1.0); BUN/CREATININE RATIO 21; CALCIUM 9.7 MG/DL (8.5-10.1); CARBON DIOXIDE 25 MMOL/L (21-32); CHLORIDE 101 MMOL/L (98-107); CREATININE SERUM 0.63 MG/DL (0.60-1.30); GFR ESTIMATED > 60; GLUCOSE 100 MG/DL (70-105); MAGNESIUM 2.1 MG/DL (1.6-2.4); POTASSIUM 3.7 MMOL/L (3.6-5.0); SODIUM 139 MMOL/L (135-145); TOTAL PROTEIN 7.6 GM/DL (6.4-8.2)
[2021-02-23 10:13] LABS: PROTHROMBIN TIME PATIENT 13.4 SEC (12.2-14.7)
[2021-02-23 10:30] VITALS: BP 123/73
== END 2021-02-23 10:30 | disposition home or self-care (01) ==
LOC: EDUNIT# 09:19 → ER FS 09:20
DX: S29.019A Strain of muscle and tendon of unspecified wall of thorax, initial encounter (principal); Z88.0 Allergy status to penicillin; Z88.1 Allergy status to other antibiotic agents; Z88.8 Allergy status to other drugs, medicaments and biological substances; X58.XXXA Exposure to other specified factors, initial encounter
CPT/HCPCS: 36415; 71045; 80053; 81000; 83735; 83874; 84484; 84703; 85025; 85379; 85610; 85730; 93005; 93041

== ENCOUNTER 2021-09-19 10:39 | Emergency (ER) | payer MEDICAID ==
[~2021-09-19] VITALS: Ht 167 cm; Wt 55.0 kg
--- OUTSIDE RECORDS SUMMARY | 2021-09-19 10:45 | XMS REPORT | Clinical Summary ---
Author Author [facility] Organization [facility] Address Unknown Phone Unavailable Care Team Providers Care Bilingual Customer Service Specialist Name Role Phone Self, Riaz REINA PCP Allergies Comments Active Allergy Reactions Severity Noted Date Nuts 12/15/2020 Penicillins 11/25/2020 Ondansetron Hcl 11/25/2020 Sertraline 12/15/2020 Medications End Date Status Medication Sig Dispensed Refills Start Date Active clonazePAM (KLONOPIN) 0.5 Take 0.5 mg 0 MG tablet by mouth 2 (two) times a day as needed for anxiety. Active acetaminophen (TYLENOL) Take 500 mg 0 500 MG tablet by mouth every 6 (six) hours as needed for pain. Active ondansetron (ZOFRAN) 4 MG Take 4 mg by 0 tablet mouth every 8 (eight) hours as needed for nausea. Active linaCLOtide (LINZESS) 145 Take 145 mcg 0 mcg capsule by mouth daily. Active atenoloL (TENORMIN) 25 MG Take 25 mg by 0 tablet mouth daily. 1/2 a pill as needed 01/20/2022 Active omeprazole (PRILOSEC) 40 Take 1 30 capsule 11 0 MG capsuleIndications: capsule (40 1 gastroesophageal reflux mg total) by disease mouth daily. Active Problems Not on file Social History Date Tobacco Use Types Packs/Day Years Used Former Smoker Smokeless Tobacco: Never Used Comments Alcohol Use Standard Drinks/Week Not Currently 0 (1 standard drink = 0.6 o z pure alcohol) Sex Assigned at Date Recorded Not on file Last Filed Vital Signs Reading Time Taken Comments Vital Sign 116/71 01/20/2021 2:18 PM CDT Blood Pressure 73 01/20/2021 2:18 PM CDT Pulse 36.3 °C (97.3 °F) 01/20/2021 2:18 PM CDT Temperature 19 12/15/2020 11:55 AM CDT Respiratory Rate 99% 12/15/2020 11:55 AM CDT Oxygen Saturation - - Inhaled Oxygen Concentration 46.7 kg (103 lb) 01/20/2021 2:18 PM CDT Weight 172.7 cm (5' 8") 01/20/2021 2:18 PM CDT Height 15.66 01/20/2021 2:18 PM CDT Body Mass Index Plan of Treatment Health Maintenance Due Date Last Done Comments Td/Tdap# 1995 COVID-19 Vaccine (1) 2000 HPV Vaccine (1 - 2-dose 2006 series) Cervical Cancer Screening 2016 via Pap Smear Influenza Vaccine (#1) 2021 06/23/2016, 08/10/2014 Pneumococcal Vaccine: Aged Out No longer eligib le based on patient's age to Pediatrics (0 to 5 Years) complete this topic and At-Risk Patients (6 to 64 Years) Results Not on filefrom Last 3 Months Insurance Type Payer Benefit Subscriber ID Effective Phone Address Plan / Dates Group MEDICAID MANAGED CARE [facility] [id number] 2020-P [address] [place] [phone] Leah Pagan Personal/F Self [address] (Home) [place], [place] [phone] Leah Pagan Third Self [address] [employer] (Home) [place], [place] Liability [id number] Advance Directives For more information, please contact: [phone] 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
--- OUTSIDE RECORDS SUMMARY | 2021-09-19 10:45 | XMS REPORT | Clinical Summary ---
Author Author [facility] Organization [facility] Address Unknown Phone Unavailable Care Team Providers Care Spool Tender Name Role Phone Self, Riaz REINA PCP Source Comments Some departments are not documenting in the electronic medical record. If you d o not see the information that you expected, contact Release of Information in [facility] Information Management department at [phone] for further assistan ce in locating additional records.[facility] Allergies Comments Active Allergy Reactions Severity Noted Date Flu like symptoms, dizziness Sucralfate SEE COMMENTS Low 04/06/2021 Chest pain, shortness of breath Omeprazole SEE COMMENTS Low 04/06/2021 SSRI - causes suicidal ideation Unclassified Drug SEE COMMENTS Low 04/06/2021 Penicillins RASH Medium 04/06/2021 Sertraline ANAPHYLAXIS, High 04/06/2021 RASH Medications End Date Status Medication Sig Dispensed Refills Start Date Active pantoprazole DR Take 40 mg by 0 (PROTONIX) 40 mg tablet mouth twice daily. Active ondansetron (ZOFRAN ODT) Dissolve 4 mg 0 4 mg rapid dissolve by mouth tablet every 8 hours as needed for Nausea or Vomiting. Place on tongue to dissolve. Active L.acid/L.casei/B.bif/B.lo Take by 0 n/FOS (PROBIOTIC BLEND mouth. PO) RainbowLite Active linaclotide (LINZESS) 145 Take 145 mcg 0 mcg capsule by mouth daily as needed. Active clonazePAM (KLONOPIN) 0.5 Take 0.5 mg 0 mg tablet by mouth at bedtime as needed. Active nortriptyline (PAMELOR) Take one 30 capsule 3 25 mg capsule capsule by 1 mouth at bedtime daily. Active Problems Not on file Social History Date Tobacco Use Types Packs/Day Years Used Never Assessed Sex Assigned at Date Recorded Female 04/05/2021 10:01 AM CDT Last Filed Vital Signs Not on file Plan of Treatment Health Maintenance Due Date Last Done Comments HPV VACCINES (1 - 2-dose 2006 series) HIV SCREENING 2010 DTAP/TDAP VACCINES (1 - 2013 Tdap) HEPATITIS C SCREENING 2013 PHYSICAL (COMPREHENSIVE) 2013 EXAM CERVICAL CANCER SCREENING 2016 INFLUENZA VACCINE 04/24/2021 Results Not on filefrom Last 3 Months Insurance Type Payer Benefit Subscriber ID Effective Phone Address Plan / Dates Group Medicaid [facility] MEDICAID [facility] [id number] 2020-P [address] [place] [address] (Home) [place], [place] [address] 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
--- NOTE | 2021-09-19 11:05 | ED Cough/URI ---
General Stated Complaint: COUGH,LIGHTHEADED History of Present Illness Date Seen by Provider: Sep 19, 2021 Time Seen by Provider: 11:00 Initial Comments 26-year-old female presents with subjective fever, cough, body ache, generalized malaise, feeling of lightheadedness and shortness of breath. Patient reports her symptoms started yesterday. She also reports that she started her menstrual cycle yesterday. Patient is not vaccinated. Allergies and Home Medications Allergies Coded Allergies: Penicillins (Verified Allergy, Unknown, 06/20/19) amoxicillin (Verified Allergy, Unknown, 06/20/19) omeprazole (Verified Allergy, Unknown, 02/23/21) sertraline (Unverified Allergy, Unknown, Throat swells, 12/20/20) Patient Home Medication List Home Medication List Reviewed: Yes Lubiprostone (Lubiprostone) 8 Mcg Capsule, 8 MCG PO BID PRN for CONSTIPATION-2ND LINE Prescribed by: RABIA GERARDO on 12/20/20 1726 Na Phos,M-B/Na Phos,Di-Ba (Fleet Enema) 133 Ml Enema, 133 ML RC BID PRN for CONSTIPATION-1ST LINE Prescribed by: RABIA GERARDO on 12/20/20 1726 Ondansetron (Ondansetron Odt) 4 Mg Tab.rapdis, 4 MG PO TID Prescribed by: WILLIAN CAMACHO on 08/21/20 1527 Ondansetron (Ondansetron Odt) 4 Mg Tab.rapdis, 4 MG PO Q6H PRN for NAUSEA/VOMITING Prescribed by: RABIA GERARDO on 12/20/20 1726 Tramadol HCl (Tramadol HCl) 50 Mg Tablet, 50 MG PO Q6H PRN for PAIN Prescribed by: AMI BECERRA on 06/20/19 2311 Review of Systems Review of Systems Constitutional: chills, fever, malaise EENTM: nose congestion, other (Congestion) Respiratory: cough, short of breath Cardiovascular: No chest pain Gastrointestinal: No abdominal pain, No nausea, No vomiting Genitourinary: see HPI Musculoskeletal: see HPI Skin: no symptoms reported Psychiatric/Neurological: Headache Past Duebisl-Xpzqqn-Gclvfk Hx Seasonal Allergies Seasonal Allergies: No Past Medical History Surgeries: Yes Section Respiratory: No Cardiac: No Neurological: No Genitourinary: No Gastrointestinal: No Musculoskeletal: No Endocrine: No HEENT: No Cancer: No Psychosocial: Yes Anxiety Integumentary: No Blood Disorders: No Physical Exam Vital Signs - First Documented 09/19/21 11:17 Temp 37.6 Pulse 86 Resp 18 B/P (MAP) 128/78 (95) O2 Delivery Room Air Capillary Refill : Height: '" Weight: lbs. oz. kg; 16.00 BMI Method: General Appearance: WD/WN, no apparent distress Neck: full range of motion Respiratory: lungs clear, normal breath sounds Cardiovascular: normal peripheral pulses, regular rate, rhythm Gastrointestinal: soft; No distended Neurologic/Psychiatric: alert, normal mood/affect, oriented x 3 Skin: normal color, warm/dry Progress/Results/Core Measures Suspected Sepsis SIRS Temperature: Pulse: Respiratory Rate: Blood Pressure / Mean: Results/Orders Lab Results Laboratory Tests Test 09/19/21 11:02 Range/Units Influenza Type A Antigen POSITIVE H NEGATIVE Influenza Type B Antigen NEGATIVE NEGATIVE My Orders Orders - AFDI HATCH DO Covid 19 Inhouse Test (09/19/21 11:09) Isolation Central Supply Req (09/19/21 11:09) Chest 1 View Ap/Pa Only (09/19/21 11:34) Influenza A & B Antigens (09/19/21 11:46) Vital Signs/I&O 09/19/21 09/19/21 11:17 11:17 Temp 37.6 Pulse 86 Resp 18 B/P (MAP) 128/78 (95) O2 Delivery Room Air Room Air Capillary Refill : Diagnostic Imaging Diagonstic Imaging: Xray Plain Films/CT/US/NM/MRI: chest Comments Date of Exam:09/19/21 CHEST 1 VIEW AP/PA ONLY INDICATION: Cough and malaise Frontal chest obtained at 11:40 a.m. and compared to 02/23/2021. Heart and mediastinal silhouette are normal in appearance. There is hyperinflation. There is no focal infiltrate or pneumothorax or pleural fluid. IMPRESSION: There is some hyperinflation but no acute infiltrate or acute process in the chest. Departure Impression Primary Impression: Influenza Disposition: 01 HOME, SELF-CARE Condition: Stable Departure-Patient Inst. Referrals: SELF,ANURAG REINA (PCP/Family) Primary Care Physician Patient Instructions: Flu, Adult ED Add. Discharge Instructions: Drink plenty of fluids Tylenol or ibuprofen as needed for fever and body ache Scripts Ondansetron (Ondansetron Odt) 4 Mg Tab.rapdis 4 MG PO Q6H PRN for NAUSEA/VOMITING, #20 TAB 0 Refills Prov: FADI HATCH DO 09/19/21 Oseltamivir Phosphate (Tamiflu) 75 Mg Cap 75 MG PO BID for 5 Days, #10 CAP Prov: FADI HATCH DO 09/19/21 FADI HATCH DO Sep 19, 2021 11:05
--- NOTE | 2021-09-19 11:49 | Diagnostic Imaging Report ---
INDICATION: Cough and malaise Frontal chest obtained at 11:40 a.m. and compared to 02/23/2021. Heart and mediastinal silhouette are normal in appearance. There is hyperinflation. There is no focal infiltrate or pneumothorax or pleural fluid. IMPRESSION: There is some hyperinflation but no acute infiltrate or acute process in the chest. Dictated by: Dictated on workstation # [id number]
[2021-09-19] MEDS ORDERED: OSLT75C PO (12:15)
[2021-09-19] MEDS ORDERED: ONDA4TAB11 PO (12:15)
[2021-09-19 12:24] VITALS: BP 112/69
== END 2021-09-19 12:20 | disposition home or self-care (01) ==
LOC: EDUNIT# 10:39 → ER FS 10:41
DX: J11.1 Influenza due to unidentified influenza virus with other respiratory manifestations (principal); Z20.822 Contact with and (suspected) exposure to COVID-19
CPT/HCPCS: 71045; 87636; 87804

== ENCOUNTER → 2021-11-01 | Outpatient (CLI) | payer MEDICAID ==
[~2021-11-01] MED LIST changes: +OSLT75C PO
--- NOTE | 2021-11-01 13:20 | Diagnostic Imaging Report ---
Exam: Nuclear medicine gastric emptying study. Date: November 01, 2021. Indication: 26-year-old female, nausea and epigastric pain. Comparison: Abdominal radiograph December 20, 2020. Findings: 1.0 mCi of technetium labeled sulfur colloid was administered. Subsequent anterior and posterior scintigraphic images of the stomach were obtained over a 4 hour timeframe for calculation of gastric emptying. At 1 hour, there is approximately 25% gastric emptying. At 2 hours, there is approximately 61% gastric emptying. At 3 hours, there is approximately 74% gastric emptying. At 4 hours, there is approximately 93% gastric emptying. Impression: 1. No evidence of delayed gastric emptying. Dictated by: Dictated on workstation # [id number]
== END ==
LOC: CARD 09:00
PROVIDERS: ATTEND Internal Medicine
DX: R11.0 Nausea (principal); R10.13 Epigastric pain
CPT/HCPCS: 78264; A9541

== ENCOUNTER 2022-07-17 05:38 | Outpatient (CLI) | payer MEDICAID ==
[~2022-07-17] VITALS: Ht 167.7 cm; Wt 45.9 kg
[2022-07-17] MEDS ORDERED: CLON0.5T4 PO (12:41)
== END 2022-07-17 12:47 | disposition home or self-care (01) ==
LOC: PREOP 05:38
PROVIDERS: ATTEND Obstetrics & Gynecology
DX: Z01.818 Encounter for other preprocedural examination (principal)

== ENCOUNTER 2022-07-21 06:34 | Day surgery (SDC) | payer MEDICAID ==
[~2022-07-21] VITALS: Ht 167.7 cm; Wt 45.9 kg
[2022-07-21] VITALS (12 sets, daily range): BP systolic 95–131; BP diastolic 53–86
[~2022-07-21 06:34] MED LIST changes: +CLON0.5T4 PO
[2022-07-21] MEDS ORDERED: BUP/EPI 0.5% 1:200,000 (MARCAINE) 10ML VIAL IJ ONE ×2 (07:05→08:50)
[2022-07-21] MEDS: LACTATED RINGERS 1,000 ML IV PRN ×2 (07:14→10:07)
[2022-07-21] MEDS ORDERED: MIDAZOLAM 2 MG/2 ML (VERSED) VIAL IV ONE (07:15)
[2022-07-21] MEDS ORDERED: fentaNYL INJ 100 MCG/2 ML AMP ONE (07:16)
[2022-07-21] MEDS ORDERED: proPOfol 200 MG/20 ML (DIPRIVAN) VIAL IV ONE (07:16)
[2022-07-21] MEDS ORDERED: LIDOCAINE PF 2% 5 ML (XYLOCAINE) VIAL ONE (07:16)
[2022-07-21] MEDS ORDERED: ROCURONIUM 10 MG/ML 5 ML SYRINGE IV ONE (07:16)
[2022-07-21] MEDS ORDERED: ONDANSETRON 4 MG/2 ML (SDV) Z0FRAN ONE ×2 (07:16→10:56)
[2022-07-21 07:29] LABS: BASOPHILS % (AUTO) 1 % (0-10); EOSINOPHILS # (AUTO) 0.1 10^3/uL (0.0-0.3); EOSINOPHILS % (AUTO) 3 % (0-10); HEMATOCRIT 41 % (35-52); HEMOGLOBIN 14.2 g/dL (11.5-16.0); LYMPHOCYTES # (AUTO) 1.8 10^3/uL (1.0-4.0); LYMPHOCYTES % (AUTO) 40 % (12-44); MEAN CORPUSCULAR HEMOGLOBIN 32 pg (25-34); MEAN CORPUSCULAR HGB CONC 35 g/dL (32-36); MEAN CORPUSCULAR VOLUME 92 fL (80-99); MEAN PLATELET VOLUME 9.7 fL (9.0-12.2); MONOCYTES # (AUTO) 0.4 10^3/uL (0.0-1.0); MONOCYTES % (AUTO) 8 % (0-12); NEUTROPHILS # (AUTO) 2.1 10^3/uL (1.8-7.8); NEUTROPHILS % (AUTO) 49 % (42-75); PLATELET COUNT 187 10^3/uL (130-400); WHITE BLOOD COUNT 4.4 10^3/uL (4.3-11.0)
--- NOTE | 2022-07-21 08:20 | Progress Note-Post Operative ---
Post-Operative Progess Note Surgeon (s)/Telecommunications Facility Examiner (s) Surgeon CESAR MIRELES MD Telecommunications Facility Examiner: Ping Crowley Pre-Operative Diagnosis Chronic pelvic pain/endometriosis Post-Operative Diagnosis Bilateral hemorrhagic corpus luteal cysts, Endometriosis, chronic appendicitis Procedure & Operative Findings Date of Procedure 07/21/22 Procedure Performed/Findings Laparoscopy for Aspirations of bilateral ovarian cysts, destruction and removal of endometriosis, laparoscopic appendectomy. Anesthesia Type General Estimated Blood Loss Estimated blood loss (mL): Minimal Specimens/Packing Specimens Removed Right uterosacral ligament peritoneum biopsy/endometriosis And appendix CESAR MIRELES MD Jul 21, 2022 08:20
--- NOTE | 2022-07-21 08:20 | Progress Note-Pre Operative ---
Pre-Operative Progress Note Date of Available H&P: Jul 21, 2022 Date H&P Reviewed: Jul 21, 2022 Time H&P Reviewed: 08:19 History & Physical: H&P Reviewed, Patient Examed, No changes noted Pre-Operative Diagnosis: Chronic pelvic pain/endometriosis CESAR MIRELES MD Jul 21, 2022 08:20
[2022-07-21] MEDS ORDERED: OXYC-199 PO (08:22)
[2022-07-21] MEDS ORDERED: IBUP-1780 PO (08:22)
[2022-07-21] MEDS ORDERED: DOCU-143 PO (08:22)
--- NOTE | 2022-07-21 08:24 | Discharge Inst-Surgical ---
Discharge Inst-Surgical Depart Medication/Instructions New, Converted or Re-Newed RX: Transmitted to Pharmacy Consults/Follow Up Patient Instructions: As directed Orders & Referrals Follow Up Appt: Call to make follow up appt. for patient in 1 week For suture removal. Activity: Rest for 24 hours, than as tolerated. Wound Care: May remove Band-Aid tomorrow. Replace as desired. Keep incisions clean and dry. Wash daily with soap and water. Diet: As tolerated shower or tub bathe as desired. No driving for 24 hours, no alcoholic beverages for 24 hours, and nothing per vagina (no tampons, douching, or intercoarse) for 2 weeks. Patient to return to the clinic as soon as possible for: Temperature greater than 101F, Severe Pain, Foul discharge from incision or vagina, Excessive Bleeding (more than a period). Activity Activity as Tolerated: No Diet Discharge Diet: No Restrictions CESAR MIRELES MD Jul 21, 2022 08:24
[2022-07-21] MEDS ORDERED: D5 LR IV SOLUTION 1,000 ML IV SCH (08:30)
[2022-07-21] MEDS ORDERED: ONDANSETRON 4 MG/2 ML (SDV) Z0FRAN IVP PRN ×3 (08:30→11:00)
[2022-07-21] MEDS ORDERED: PROMETHAZINE INJ 25 MG/ML (PHENERGAN) AMP IM ONE (08:30)
[2022-07-21] MEDS ORDERED: oxyCODONE/APAP 5/325MG (PERCOCET 5) TABLET PO PRN (08:30)
[2022-07-21] MEDS ORDERED: MEPERIDINE (DEMEROL) INJ 100 MG/ML IM ONE (08:30)
[2022-07-21] MEDS ORDERED: KETOROLAC 30 MG/ML VIAL IVP ONE (08:30)
[2022-07-21] MEDS ORDERED: NEOSTIGMINE (BLOXIVERZ ) 1 MG/1ML 10 ML VIAL ONE (09:10)
[2022-07-21] MEDS ORDERED: GLYCOPYRROLATE 0.2 MG/ML (ROBINUL) 2 ML VIAL ONE (09:10)
[2022-07-21] MEDS ORDERED: SEVOFLURANE (ULTANE) 15 ML INHAL SOLN ONE (09:17)
[2022-07-21] MEDS ORDERED: morphine INJ 10 MG/ML 1ML (SYR OR VIAL) IVP ONE (09:30)
[2022-07-21] MEDS ORDERED: morphine INJ 10 MG/ML 1ML (SYR OR VIAL) ONE (10:02)
--- NOTE | 2022-07-21 10:21 | OPERATIVE REPORT ---
DATE OF SERVICE: 07/21/2022 PREOPERATIVE DIAGNOSIS: Chronic pelvic pain, possible endometriosis. POSTOPERATIVE DIAGNOSES: Chronic pelvic pain, possible endometriosis with bilateral ovarian cysts as well as endometriosis and with abnormal appendix. OPERATIVE PROCEDURE: Laparoscopic bilateral ovarian cyst aspiration, laparoscopic destruction and removal of endometriosis and laparoscopic appendectomy. OPERATIVE DESCRIPTION: With the patient in supine position under satisfactory general anesthesia, she was repositioned in dorsal lithotomy position in the [facility] and prepped and draped in the usual fashion for abdominal and vaginal surgery. Urinary bladder was drained with a red Salgado catheter. A weighted speculum in posterior fornix of vagina, cervix exposed and grasped anteriorly with single tooth tenaculum. Uterus was sounded to 11 cm with uterine sound. The cervix was then serially dilated with Keshawn dilators to accommodate a ZUMI uterine manipulator, which was placed, and the bulb filled with 4 mL of air. The tenaculum and speculum were removed. The patient was brought in low dorsal lithotomy position. A 5 mm incision was made in the patient's left upper quadrant. Veress needle was placed through that incision into the abdominal cavity. Correct placement confirmed with water drop test. The abdomen was insufflated with 2.4 liters of carbon dioxide and the Veress needle was removed and a 5 mm Optiview laparoscopic port was placed under direct vision. The abdominal wall was transilluminated, and a 12 mm port was placed through an incision of that size in the base of the appendix and then a 5 mm port placed in the midline of her Pfannenstiel incision just above the symphysis pubis. The patient was placed in Trendelenburg allowing the bowel spill out of the pelvis. The pelvis was examined. Both fallopian tubes were fairly markedly clubbed consistent with sequelae to endometriosis. Both ovaries had what appeared to be hemorrhagic cyst and functional cysts. These cysts were touched with electrocautery to fenestrate and then the contents drained out and was eventually aspirated out. Attention was turned to the cul-de-sac. There were no obvious endometriosis in the cul-de-sac. There was an Sergio-Masters window on the right, uterosacral ligament that appeared inflamed and somewhat sclerotic. That tissue was grasped and elevated and the fragment of tissue/peritoneum was excised completely and sent to pathology for permanent section. Several other small spots consistent with endometriosis were touched with electrocautery that destroy those implants. There were implants on the isthmus of the right fallopian tube. These were touched with electrocautery to destroy them as well. The pelvis was examined a final time. There was no remaining abnormal pathology. Laparoscope was turned to the appendix. Appendix was grasped and elevated. The mesoappendix was perforated close the base of appendix with electrocautery and then the Endo-MARÍA was placed across the base of the appendix and fired, a second firing of the Endo-MARÍA across the mesoappendix severed that organ from its attachment. The appendix was placed in an Endobag and brought out through the umbilical port. The stump of the appendix was copiously irrigated. The pelvis was copiously irrigated. There was no bleeding. There was no abnormal pathology. The stump of the appendix was then treated with several drops of Betadine solution. With the procedure complete, sponge and needle counts correct. Blood loss was minimal and no remaining abnormal pathology, the procedure was terminated. Operative instruments were removed under direct vision as were the ports. The abdomen was evacuated insufflating gas in the process of removing the ports. The fascia at the umbilical incision was closed with a [id number] suture of 2-0 Vicryl. The abdominal skin incisions were closed with interrupted nylon sutures. The uterine manipulator bulb was drained. The instruments were removed from the uterus. Speculum was placed in the vagina. The cervix examined for hemostasis. There was fairly brisk bleeding from the right puncture site on the cervix. This was touched with silver nitrate to effect hemostasis. Minimal oozing from the left puncture site, but that was touched with silver nitrate as well. With hemostasis complete, minimal oozing from the cervical os and again, sponge and needle counts correct. Blood loss minimal. The patient was now uneventfully awakened from her general anesthesia and transferred to recovery room in stable condition with plans for discharge home PAR. Job ID: [id number] DocumentID: [id number] Dictated Date: 07/21/2022 09:18:03 Barrel Tester And Drainer Date: 07/21/2022 10:20:34 Dictated By: CESAR MIRELES MD
[2022-07-21] MEDS ORDERED: ALBUMIN 25% 25 GM/100 ML 100 ML IV NR (12:15)
[2022-07-21] MEDS ORDERED: oxyCODONE/APAP 5/325MG (PERCOCET 5) TABLET ONE (12:48)
--- NOTE | 2022-07-21 14:26 | Anesthesia-General Post-Op ---
General Patient Condition Mental Status/LOC: Same as Preop Cardiovascular: Satisfactory Nausea/Vomiting: Absent Respiratory: Satisfactory Pain: Controlled Complications: Absent Post Op Complications Complications None Follow Up Care/Instructions Patient Instructions None needed. Anesthesia/Patient Condition Patient Condition Patient is doing well, no complaints, stable vital signs, no apparent adverse anesthesia problems. No complications reported per nursing. CHICA HIGHTOWER CRNA Jul 21, 2022 14:26
[2022-07-21] MEDS ORDERED: ACHD5005 PO (15:24)
== END 2022-07-21 14:15 | disposition home or self-care (01) ==
LOC: SDC 06:34
PROVIDERS: ATTEND Obstetrics & Gynecology
DX: N83.201 Unspecified ovarian cyst, right side (principal); N83.202 Unspecified ovarian cyst, left side; K35.80 Unspecified acute appendicitis; N80.3C1 Endometriosis of the right uterosacral ligament, unspecified depth; N73.6 Female pelvic peritoneal adhesions (postinfective); Z87.891 Personal history of nicotine dependence
CPT/HCPCS: 36415; 84703; 85025; 87081

== ENCOUNTER → 2022-09-27 | Outpatient (CLI) | payer MEDICAID ==
[~2022-09-27] MED LIST changes: +ACHD5005 PO; +DOCU-143 PO; +IBUP-1780 PO; +OXYC-199 PO; +RT-ALBUTEROL SULF 2.5 MG/3 ML PRE-MIX VIAL INH ONE
== END ==
LOC: CARD 08:31
PROVIDERS: ATTEND Registered Nurse Emergency
DX: R00.2 Palpitations (principal); R06.02 Shortness of breath; R07.9 Chest pain, unspecified; R10.13 Epigastric pain
CPT/HCPCS: 93225; 93226; 94060; 94726; 94729; C8929; 93306

== ENCOUNTER → 2022-10-19 | Outpatient (CLI) | payer MEDICAID ==
[~2022-10-19] MED LIST changes: +CATHETER FLUSH 10 ML SYR IV PRN; +HOLD METFORMIN - RECEIVED CONTRAST 20 ML VIAL IV SCH; +IOHEXOL 350 MG/ML 100 ML (OMNIPAQUE 350) VIAL IV ONE; +NS 100 ML (IVPB) BAG IV ONE; -RT-ALBUTEROL SULF 2.5 MG/3 ML PRE-MIX VIAL INH ONE
--- NOTE | 2022-10-19 11:49 | Diagnostic Imaging Report ---
EXAMINATION: CT chest with intravenous contrast. TECHNIQUE: Multiple contiguous axial images were obtained through the chest after the uneventful administration of intravenous contrast. All CT scans use one or more of the following dose optimizing techniques: automated exposure control, MA and/or KvP adjustment based on patient size and exam type or iterative reconstruction. HISTORY: Chest pain. COMPARISON: None available. FINDINGS: There is no edema or pneumonia. No pleural effusion. No pneumothorax. No suspicious nodules. There is no axillary or supraclavicular lymphadenopathy. There is no mediastinal lymphadenopathy. Heart size is normal. There are no coronary artery calcifications. No pericardial effusion. Aorta is normal in caliber. Limited views of the upper abdomen are unremarkable. There are no suspicious osseus lesions. IMPRESSION: 1. No acute abnormality in the chest. Dictated by: Dictated on workstation # [id number]
== END ==
LOC: RAD FS 10:00
PROVIDERS: ATTEND Registered Nurse Emergency
DX: Z32.00 Encounter for pregnancy test, result unknown (principal); R07.9 Chest pain, unspecified; R00.0 Tachycardia, unspecified; R06.09 Other forms of dyspnea
CPT/HCPCS: 71260; 84703; Q9967

== ENCOUNTER → 2023-06-11 | Outpatient (CLI) | payer MEDICAID ==
[~2023-06-11] MED LIST changes: -CATHETER FLUSH 10 ML SYR IV PRN; -HOLD METFORMIN - RECEIVED CONTRAST 20 ML VIAL IV SCH; -IOHEXOL 350 MG/ML 100 ML (OMNIPAQUE 350) VIAL IV ONE; -NS 100 ML (IVPB) BAG IV ONE
--- NOTE | 2023-06-11 14:18 | Diagnostic Imaging Report ---
Indication: Palpable lump right axilla. No prior mammograms are available for comparison. 2-D and 3-D bilateral diagnostic mammography was performed with with CAD. The current study was also evaluated with a Computer Aided Detection (CAD) system. Skin marker was placed at the area of palpable abnormality in the right axilla. Both breasts are heterogeneously dense, limiting the sensitivity of mammography. There is a slightly lobulated density in the inferior right breast approximately 6:00 location 3-4 cm from the nipple. No other masses are seen. Specifically, no abnormality in the right axilla is identified at the area of palpable abnormality. No suspicious microcalcifications are seen. Left breast is unremarkable. IMPRESSION: BI-RADS 0 1. Lobulated density in the inferior right breast approximately 6:00 location 3-4 cm from the nipple. Evaluation of this area with ultrasound is recommended and will be performed today. In addition, ultrasound of the area of palpable abnormality in the right axilla will be performed today as well. ACR BI-RADS Category 0: Incomplete. (Needs additional imaging evaluation). Result letter will be mailed to the patient. Note: At least 10% of breast cancer is not imaged by mammography. Dictated by: Dictated on workstation # [id number]
--- NOTE | 2023-06-11 14:40 | Diagnostic Imaging Report ---
INDICATION: Palpable lump in the right axilla as well as a density noted on the inferior right breast on recent mammogram. CORRELATION is made with diagnostic mammogram earlier the same day. Sonographic interrogation at the 6:00 location right breast was performed, 2-3 cm from the nipple. There is an ovoid circumscribed nodule measuring 6 x 3 x 6 mm, likely a small fibroadenoma. This may account for the density noted mammographically. The right axilla was also evaluated at the area of palpable abnormality. There is a small normal-sized lymph node measuring 7 x 2 x 6 mm. No other abnormalities are detected. IMPRESSION: BI-RADS Category 2. Normal-sized lymph node right axilla accounting for the area of palpable abnormality. In addition, there is a subcentimeter circumscribed solid-appearing nodule at the 6:00 location right breast, 2-3 cm from the nipple, most suggestive of a fibroadenoma. No further follow-up is indicated. ACR BI-RADS Category 2: Benign findings. Result letter will be mailed to the patient. Note: At least 10% of breast cancer is not imaged by mammography. Dictated by: Dictated on workstation # [id number]
== END ==
LOC: RAD 12:30
PROVIDERS: ATTEND Obstetrics & Gynecology
DX: N64.89 Other specified disorders of breast (principal); R59.9 Enlarged lymph nodes, unspecified; Z80.3 Family history of malignant neoplasm of breast
CPT/HCPCS: 76642; 77065; G0279